=== PATIENT | female | born 1955 | race Hispanic/Latino ===

== ENCOUNTER 2022-06-15 13:07 | Emergency (ER) | payer OTHER ==
[~2022-06-15] VITALS: Ht 160 cm; Wt 75.3 kg
[2022-06-15 13:21] LABS: BASOPHILS % (AUTO) 0.6 % (0.0-5.0); EOSINOPHILS % (AUTO) 1.3 % (0.0-8.0); LYMPHOCYTES % (AUTO) 23.5 % (21.0-51.0); MEAN CORPUSCULAR HEMOGLOBIN 31.9 pg (27.0-33.0); MEAN CORPUSCULAR HGB CONC 34.4 g/dL (32.0-36.0); MEAN CORPUSCULAR VOLUME 92.7 fL (79-99); MONOCYTES % (AUTO) 8.3 % (3.0-13.0); NEUTROPHILS % (AUTO) 65.9 % (40.0-77.0); PLATELET COUNT (AUTO) 204 K/uL (130-400); RED BLOOD CELL COUNT(AUTO) 4.64 MIL/uL (4.00-5.50); RED CELL DISTRIBUTION WIDTH 12.2 % (11.0-15.5); WHITE BLOOD COUNT (AUTO) 8.9 K/uL (4.8-10.8)
[2022-06-15 13:22] VITALS: BP 145/48
[2022-06-15] MEDS: LORAZEPAM 1 MG TABLET ONE (13:25)
[2022-06-15] MEDS: LORAZEPAM 1 MG TABLET PO ONE (13:25)
[2022-06-15] MEDS ORDERED: LORAZEPAM 2 MG/ML 1 ML VIAL IVP ONE (13:30)
[2022-06-15 13:34] LABS: CREATININE 0.9 mg/dL (0.5-1.5); POTASSIUM 3.3 mmol/L (3.5-5.1)
[2022-06-15] MEDS: POTASSIUM BICARB/CIT AC 25 MEQ TABLET.EFF PO ONE (13:41)
[2022-06-15 13:45] LABS: ALBUMIN 3.7 g/dL (3.5-5.0); TOTAL PROTEIN, SERUM 6.7 g/dL (6.0-8.3)
[2022-06-15] MEDS: POTASSIUM BICARB/CIT AC 25 MEQ TABLET.EFF ONE (13:53)
[2022-06-15] MEDS ORDERED: HYDR-3421 PO (13:56)
== END 2022-06-15 14:00 | disposition home or self-care (01) ==
LOC: EDH 13:07
DX: F41.9 Anxiety disorder, unspecified (principal); R55 Syncope and collapse
CPT/HCPCS: 36415; 71045; 80053; 84484; 85025; 93005

== ENCOUNTER 2022-08-21 21:52 | Emergency (ER) | payer OTHER ==
[~2022-08-21] VITALS: Ht 160 cm; Wt 73.9 kg
[~2022-08-21 21:52] MED LIST: HYDR-3421 PO
[2022-08-21] MEDS ORDERED: ONDANSETRON 4MG INJ IVP STA (22:05)
[2022-08-21 22:26] LABS: BASOPHILS % (AUTO) 0.3 % (0.0-5.0); EOSINOPHILS % (AUTO) 0.1 % (0.0-8.0); HEMATOCRIT 47.3 % (36-48); LYMPHOCYTES % (AUTO) 9.6 % (21.0-51.0); MEAN CORPUSCULAR HEMOGLOBIN 31.7 pg (27.0-33.0); MEAN CORPUSCULAR HGB CONC 34.9 g/dL (32.0-36.0); MONOCYTES % (AUTO) 2.3 % (3.0-13.0); NEUTROPHILS % (AUTO) 87.5 % (40.0-77.0); PLATELET COUNT (AUTO) 204 K/uL (130-400); RED CELL DISTRIBUTION WIDTH 11.8 % (11.0-15.5)
[2022-08-21] MEDS ORDERED: 0.9%NACL 1000ML 1,000 ML IV ONE (22:30)
[2022-08-21 22:36] LABS: CREATININE 0.9 mg/dL (0.5-1.5); POTASSIUM 3.5 mmol/L (3.5-5.1)
[2022-08-21 22:45] LABS: ALBUMIN 4.3 g/dL (3.5-5.0); TOTAL PROTEIN, SERUM 8.2 g/dL (6.0-8.3)
[2022-08-21 23:35] LABS: APPEARANCE,URINE CLOUDY (CLEAR); BILIRUBIN,URINE NEGATIVE (NEGATIVE); COLOR,URINE LIGHT-YELLOW (YELLOW); GLUCOSE, URINE (UA) NEGATIVE (NEGATIVE); KETONES,URINE 10 mg/dL (NEGATIVE); LEUKOCYTE ESTERASE ,URINE NEGATIVE Leu/uL (NEGATIVE); NITRATE,URINE NEGATIVE (NEGATIVE); OCCULT BLOOD,URINE NEGATIVE (NEGATIVE); PH,URINE 7.5 (5.0-8.0); PROTEIN,URINE NEGATIVE (NEGATIVE); UROBILINOGEN,URINE 0.2 mg/dL (0.2-1.0)
[2022-08-21 23:41] LABS: MUCUS,URINE RARE LPF (None Seen); RBC,URINE 0-1 /HPF (0-1); WBC,URINE 0-1 /HPF (0-1)
[2022-08-22] MEDS ORDERED: OMEP20TA2 PO (01:22)
[2022-08-22] MEDS ORDERED: MECL-262 PO (01:22)
[2022-08-22 01:40] VITALS: BP 139/71
== END 2022-08-22 01:41 | disposition home or self-care (01) ==
LOC: EDH 21:52
DX: R11.2 Nausea with vomiting, unspecified (principal); R42 Dizziness and giddiness; R07.89 Other chest pain; I10 Essential (primary) hypertension; K21.9 Gastro-esophageal reflux disease without esophagitis; Z98.890 Other specified postprocedural states; Z79.899 Other long term (current) drug therapy
CPT/HCPCS: 99284; 96374; 84484; 80053; 85025; 81001; 36415; 93005; J7030; J2405

== ENCOUNTER 2024-11-14 07:14 | Day surgery (SDC) | payer OTHER ==
--- NOTE | 2024-11-10 15:33 | EKG ---
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
[2024-11-10 15:43] LABS: BASOPHILS # (AUTO) 0.04 K/uL (0.00-0.20); BASOPHILS % (AUTO) 0.5 % (0.0-5.0); EOSINOPHILS # (AUTO) 0.15 K/uL (0.00-0.70); EOSINOPHILS % (AUTO) 1.7 % (0.0-8.0); HEMATOCRIT 43.5 % (36-48); IMMATURE GRANULOCYTE ABSOLUTE 0.03 K/uL (0-1); LYMPHOCYTES # (AUTO) 1.6 K/uL (1.0-4.8); LYMPHOCYTES % (AUTO) 18.1 % (21.0-51.0); MEAN CORPUSCULAR HEMOGLOBIN 31.8 pg (27.0-33.0); MEAN CORPUSCULAR HGB CONC 32.9 g/dL (32.0-36.0); MEAN CORPUSCULAR VOLUME 96.9 fL (79-99); MONOCYTES # (AUTO) 0.6 K/uL (0.1-1.0); NEUTROPHILS # (AUTO) 6.2 K/uL (1.8-7.7); NEUTROPHILS % (AUTO) 72.4 % (40.0-77.0); PLATELET COUNT (AUTO) 236 K/uL (130-400); RED BLOOD CELL COUNT(AUTO) 4.49 MIL/uL (4.00-5.50); RED CELL DISTRIBUTION WIDTH 12.1 % (11.0-15.5); WHITE BLOOD COUNT (AUTO) 8.6 K/uL (4.8-10.8)
[2024-11-10 15:52] VITALS: BP 143/67; PULSE 66; RESP 16; TEMP 97.7
[2024-11-10 15:53] LABS: CREATININE 0.8 mg/dL (0.5-1.0); POTASSIUM 3.8 mmol/L (3.5-5.1)
[2024-11-10 16:09] LABS: INR <= 0.93 (0.85-1.15); PROTHROMBIN TIME 10.3 SEC (9.6-11.6)
[2024-11-10 16:11] LABS: PARTIAL THROMBOPLASTIN TIME 28.1 SEC (26.3-35.5)
[~2024-11-14] VITALS: Ht 160 cm; Wt 80.5 kg
[2024-11-14] VITALS (8 sets, daily range): BP systolic 127–194; BP diastolic 52–84; PULSE 64–67; RESP 13–17; TEMP 97.2–98
[~2024-11-14 07:14] MED LIST changes: +FAMO40TA7 PO; -HYDR-3421 PO; +LOSA25TA41 PO
[2024-11-14] MEDS: 0.9%NACL 1000ML 1,000 ML IV SCH (08:33)
[2024-11-14] MEDS ORDERED: MEPERIDINE-PF 25 MG/ML SYG ONE ×2 (10:38→11:03)
[2024-11-14] MEDS ORDERED: LIDOCAINE HCL 1% MDV 50ML VIAL ONE (10:38)
[2024-11-14] MEDS ORDERED: ceFAZolin SODIUM 1 GM VIAL ONE (10:39)
[2024-11-14] MEDS ORDERED: MIDAZOLAM HCL 1 MG/ML 2ML VIAL ONE ×2 (10:39→11:03)
[2024-11-14] MEDS ORDERED: IOHEXOL-350 50ML VIAL IV ONE ×2 (10:39→10:43)
[2024-11-14] MEDS ORDERED: BUPIvacaine/PF 0.25% 30ML VIAL IJ ONE (10:39)
[2024-11-14] MEDS ORDERED: TRAM50TA4 PO (13:12)
[2024-11-14] MEDS ORDERED: acetaMINOPHEN WITH coDEINE 1 TAB TAB PO PRN (13:30)
[2024-11-14] MEDS ORDERED: acetaMINOPHEN 500 MG TABLET PO PRN (13:30)
--- NOTE | 2024-11-14 15:09 | HMCIMG ---
CHEST 1VW HISTORY: Post pacemaker COMPARISON: 12/20/2022 FINDINGS: A frontal projection of the chest was obtained. No acute pulmonary infiltrates is seen. The heart is borderline enlarged. Pacemaker is seen entering from the left. Prominent interstitial markings are seen. Degenerative changes are seen. No evidence of aortic calcification is seen. IMPRESSION: 1. No acute pulmonary infiltrate is seen.
== END 2024-11-14 15:40 | disposition home or self-care (01) ==
LOC: DAH 07:14
PROVIDERS: ATTEND Internal Medicine Cardiovascular Disease
DX: R55 Syncope and collapse (principal); I44.2 Atrioventricular block, complete; I25.10 Atherosclerotic heart disease of native coronary artery without angina pectoris; I10 Essential (primary) hypertension; Z79.899 Other long term (current) drug therapy; Z98.890 Other specified postprocedural states
CPT/HCPCS: 80048; 85025; 85610; 85730; 36415; 93005; 33286; 33208; 71045; A4223 ×3; A4649; C1769; C1785; C1898 ×2; J0690; J7030; J0665; J2250 ×2; J2175 ×2; J3490; Q9967 ×2; A4215; A4222; A4221; A4663; A4216; A4606; 99156; 99157